=== PATIENT | male | born 1985 | race Caucasian/White ===

== ENCOUNTER 2016-10-08 17:36 | Emergency (ER) | payer OTHER ==
--- NOTE | 2016-10-08 19:36 | ED CLINICAL REPORT ---
Clinical Report - Physicians/Mid Levels [facility] [address] [place] [address] 10/08/2016 17:39 Patient: CINDY SCHMITT Time Seen: 17:54; initial patient contact, initial documentation, patient care assumed. Arrived- By private vehicle. Historian- patient and significant other. HISTORY OF PRESENT ILLNESS The patient has recovered. Chief Complaint: SINGLE SYNCOPAL EPISODE. This occurred just prior to arrival. Event was witnessed. The patient had preceding symptoms of light-headedness. The patient lost consciousness and collapsed. No seizure activity, incontinence or apnea noted. Did not lose pulse. At time of event, he had just stood up. Had a single episode. The episode was brief and lasted seconds. Location of injuries- right hip. (sleepy). Similar symptoms previously: Twice, as bad. Recent medical care: The patient was seen recently in the office. ( was at dental office, had wisdom teeth removed, had nitrous gas, was in waiting room, spouse checking him out, he went to stand up and got lightheaded and passed out, still feels groggy from procedure, ems called to scene, checked him over, and everything looked ok). REVIEW OF SYSTEMS No headache, dizziness, weakness, chest pain or abdominal pain. No vomiting, numbness, fever or difficulty breathing. All systems otherwise negative, except as recorded above. PAST HISTORY Negative. SOCIAL HISTORY Never smoker. No alcohol use or drug use. No recent travel. Is a local resident. FAMILY HISTORY Negative. ADDITIONAL NOTES The nursing notes have been reviewed with agreement regarding the chief complaint, HPI, ROS, PMH and patient medications and allergies. PHYSICAL EXAM Vital Signs: 10/08/2016 17:53 BP: 105/68. HR: 53. RR: 12. O2 saturation: 98%. Temp: 97.6 F. Pain level now: 5/10. Have been reviewed as abnormal and appear to be correct. Blood pressure normal. Bradycardic. Respiratory rate normal. Temperature normal. Oxygen saturation normal. Appearance: Alert. No acute distress. Eyes: Pupils equal, round and reactive to light. No nystagmus. Extraocular movements normal. ENT: Normal ENT inspection. TM's normal. Moist mucous membranes. Pharynx normal. (packing in place over R upper molar area, no active bleeding, no swelling). Neck: Normal inspection. Neck supple. CVS: Heart rate / rhythm abnormal. Bradycardia (ventricular rate = 56). Heart sounds normal. Pulses normal. Respiratory: No respiratory distress. Breath sounds normal. Abdomen: Soft and nontender. No organomegaly. Back: Normal inspection. Skin: Skin warm and dry. Normal skin color. No rash. Normal skin turgor. Extremities: Extremities exhibit normal ROM. No lower extremity edema. Neuro: Alert. Oriented X 3. Mood/affect normal. Speech normal. Cranial nerves normal (as tested). No cerebellar findings. No motor deficit. No sensory deficit. LABS, X-RAYS, AND EKG EKG: EKG time: (1830). No acute process. No acute ischemia. Normal EKG. Rate: 43. Narrow-complex bradycardia (ventricular rate 43). Sinus bradycardia. Normal EKG. The study has been interpreted contemporaneously by me (and Dr Cordon). The EKG appears to be a good tracing. Interpretation time: 1840. Laboratory Tests: CBC w Diff: (WILMA: 10/08/2016 18:47) ( MsgRcvd 10/08/2016 19:00) Final results Test Result Flag Units (Reference) WHITE BLOOD COUNT 10.0 K/uL (4.5-11.5) RED BLOOD COUNT 4.50 M/uL (4.50-5.90) HEMOGLOBIN 13.1 L gm/dL (13.5-17.5) HEMATOCRIT 39.4 L % (41.0-53.0) MEAN CELL VOLUME 87 fL (80-100) MEAN CORPUSCULAR HGB 29 pg (26-34) MEAN CORPUSCULAR HGB CONC 33 g/dL (31-37) RED CELL DISTRIBUTION WIDTH 13.4 % (11.6-14.8) PLATELET COUNT 182 K/uL (150-400) NEUTROPHIL % 78.7 H % (50-75) LYMPH % 14.4 L % (25-40) MONO % 6.2 % (3-14) EOSINOPHIL % 0.4 % (0-4) BASOPHIL % 0.3 % (0-2) CMP: (WILMA: 10/08/2016 18:47) ( MsgRcvd 10/08/2016 19:12) Final results Test Result Flag Units (Reference) GLUCOSE 84 mg/dL (70-110) BUN 19 H mg/dL (7-18) CREATININE 1.0 mg/dL (0.6-1.3) Estimated GFR >60 mL/min Estimated GFR- >60 mL/min Note: Persistent reduction over 3 months in eGFR<60 mL/min/1.73 m2 defines CKD. Patients with eGFR values>=60 mL/min/1.73 m2 may also have CKD if evidence ofpersistent proteinuria. Additional information may be foundat www.kidney.org. SODIUM 143 mmol/L (136-145) POTASSIUM 3.9 mmol/L (3.5-5.1) CHLORIDE 105 mmol/L (98-107) CARBON DIOXIDE 32 mmol/L (21-32) CALCIUM 8.8 mg/dL (8.5-10.1) TOTAL PROTEIN 7.4 g/dL (6.4-8.2) ALBUMIN 4.1 g/dL (3.3-5.0) BILIRUBIN, TOTAL 0.5 mg/dL (0.0-1.0) ALKALINE PHOSPHATASE 41 L U/L (46-116) AST (SGOT) 34 U/L (15-37) ALT (SGPT) 49 U/L (12-78) . PROGRESS AND PROCEDURES Course of Care: 18:32 10/08/16. BP: 105/64 (regular adult cuff) taken on the left arm, via an automated monitor, while lying. HR: 49 (regular). --18:33 Monique Cyr 18:34 10/08/16. BP: 104/70 (regular adult cuff) taken on the left arm, via an automated monitor, while sitting. HR: 46. --18:34 Monique Cyr 18:38 10/08/16. BP: 107/68 (regular adult cuff) taken on the left arm, via an automated monitor, while standing. HR: 55. --18:39 Monique Cyr. Patient and spouse counseled in person regarding the patient's stable condition, test results and diagnosis. 19:26. Differential Diagnosis: I considered situational stimulus, cough, sneezing, swallowing, cardiac sinus hypersensitivity, sudden postural change, hypovolemia, autonomic neuropathy, adrenal insufficiency, arrhythmia, heart block, myocardial infarction, idiopathic hypertrophic subaortic stenosis, aortic stenosis, left ventricular dysfunction, hypoxia, hypoglycemia and basivertebral TIA as a possible cause of syncope in this patient. This is a partial list of diagnoses considered. Above considerations are based on history, physical exam, reassessment, laboratory data, EKG and other information. Differential diagnosis was discussed with patient and patient's spouse. Disposition: Discharged home in good and improved condition (19:36). Condition: good and stable. CLINICAL IMPRESSION Syncope of unknown cause .12 lead EKG performed. INSTRUCTIONS Warnings: GENERAL WARNINGS: Return or contact your physician immediately if your condition worsens or changes unexpectedly, if not improving as expected, or if other problems arise. SPECIFICALLY, return if you develop chest pain, neck pain, jaw pain, shoulder pain, arm pain, back pain, fluttering sensation in your chest, lightheadedness, fainting, numbness, weakness or extreme fatigue. Follow-up: Follow up with your doctor in about three days as needed. Call for an appointment. Summary of care provided to patient and family. Understanding of the discharge instructions verbalized by patient and family. (Electronically signed by Suzanne Tinajero A.R.N.P. 10/08/2016 22:41)
--- NOTE | 2016-10-08 19:36 | ED ORDER SUMMARY ---
..... Patient: CINDY SCHMITT OrderSheet [facility] VisitID: [id number] [address] [place] [address] 31y, M Registration Date/Time: 10/08/2016 ORDER SHEET Weight: 65.7 kg (stated) Allergies: Penicillin GENERAL ORDERS: CBC w Diff Urgent (18:20 10/08/2016 HBivens A.R.N.P.) (Ack 18:21 IJurca ER Tech1) (18:50 MCook R.N.) CMP Urgent (18:20 10/08/2016 HBivens A.R.N.P.) (Ack 18:21 IJurca ER Tech1) (18:50 MCook R.N.) Vitals - Orthostatic (18:20 10/08/2016 HBivens A.R.N.P.) (Ack 18:21 IJurca ER Tech1) (18:39 RKaruga) EKG - ER Stat (18:20 10/08/2016 HBivens A.R.N.P.) (Ack 18:21 IJurca ER Tech1) (18:39 RKaruga) MEDICATION ORDERS: IV FLUIDS: IV NS : initial bolus 1000 mL (1000 mL/hr), then none - (NOW) (18:19 10/08/2016 HBivens A.R.N.P.) (18:50 MCook R.N.) IV Saline Lock (18:20 10/08/2016 HBivens A.R.N.P.) (18:49 MCook R.N.) ORDER SHEET NOTES: [Electronically signed by Shyam Marcum R.N. (19:52 10/08/2016)] [Electronically signed by Suzanne Tinajero.R.N.P. (22:41 10/08/2016)] [Electronically locked/signed by Shyam Marcum R.N. (19:52 10/08/2016)]
--- NOTE | 2016-10-08 19:36 | ED NURSING NOTES ---
Clinical Report - Nurses [facility] [place] [address] [address] 10/08/2016 17:39 Patient: CINDY SCHMITT TRIAGE Triage time 17:47 Oct 08 2016. Chief Complaint: (Pt had a syncopal event at the dental clinic post procedure). Alert. No acute distress. SEPSIS SCREEN: Sepsis Screen. Negative (no infection suspected/documented). --17:50 Shyam Marcum R.N. 17:53 10/08/16. BP: 105/68. HR: 53. RR: 12. O2 saturation: 98% on room air. Temp: 97.6 F. Pain level now: 09/30. --17:55 Shyam Marcum R.N. Weight: 65.7 kg stated. Height/Length: 71 inches Per Patient. BMI: 20.2. --17:46 Shyam Marcum R.N. Medications Suboxone Sublingual. --17:49 Shyam Marcum R.N. Allergies Penicillin. --17:49 Shyam Marcum R.N. The following entry was struck by Shyam Marcum R.N., 17:49 (10/08/16) Reason - wrong value. <<STRICKEN ENTRY-- Penicill. --17:48 Shyam Marcum R.N. --END STRIKE>>. History Arrived by private vehicle. Historian: patient. Accompanied by family. This started today. ( EMS saw Pt at the scene, recommended he come to ED for further eval.). Treatment ENDS DOWN CHECKER: None. PAST MEDICAL HX: Immunizations: up-to-date. SOCIAL HX: Never smoker. History of drug use: marijuana. (last use was yesterday). No alcohol use. No infectious disease exposure. FALL RISK ASSESSMENT: Fall risk assessment completed. No fall risk identified. NUTRITIONAL RISK ASSESSMENT: The nutritional risk assessment revealed no deficiencies. FUNCTIONAL ASSESSMENT: Functional assessment: no impairments noted. LEARNING NEEDS ASSESSMENT: The learning needs assessment revealed no barriers. SKIN INTEGRITY ASSESSMENT: Skin integrity risk assessment completed. No skin integrity risk identified. --17:50 Shyam Marcum R.N. ADDITIONAL SURGERIES: no known surgeries. Interventions ID band on patient. --17:50 Shyam Marcum R.N. PHYSICAL ASSESSMENT Ambulatory to room. GENERAL / NEURO / PSYCH: Appears in distress. Alert. Altered mental status: lethargic. HEENT: Pupils equal, round and reactive to light. RESPIRATORY: Respirations not labored. CVS: Cardiac rhythm: sinus bradycardia. SKIN: Skin is warm and dry. Skin is pale. --17:56 Shyam Marcum R.N. NURSING PROGRESS NOTES The plan of care for this patient has been created. Monitoring of patient in place. Patient gowned. Head of bed elevated. Reassurance given. Two patient identifiers checked. Call light placed in reach. Side rails up x 2. Bed placed in lowest position. Patient ready for evaluation. --17:56 Shyam Marcum R.N. 18:32 10/08/16. BP: 105/64 (regular adult cuff) taken on the left arm, via an automated monitor, while lying. HR: 49 (regular). --18:33 Monique Cyr 18:34 10/08/16. BP: 104/70 (regular adult cuff) taken on the left arm, via an automated monitor, while sitting. HR: 46. --18:34 Monique Cyr 18:38 10/08/16. BP: 107/68 (regular adult cuff) taken on the left arm, via an automated monitor, while standing. HR: 55. --18:39 Monique Cyr EKG time: (18:31). EKG was performed by a tech and shown to the ED physician. --18:41 Monique Cyr 18:49 10/08/2016 Site #1 started via IV in the right antecubital space with an 20g angiocath, with aseptic technique and good blood return; one attempt. Blood drawn: rainbow set. Labeled in the presence of the patient and sent to the lab. Saline lock flushed with 10 mL saline. --18:49 Shyam Marcum R.N. 18:50 10/08/2016 Started bag #1 1000 mL IV Fluids IV NS (Saline); bolus of 1000 mL wide open via site #1. Allergies verified and confirmed 5 rights. IV patency established. IV site checked: no pain, redness, or swelling. IV flushed thoroughly pre- and post-medication administration. Completed per protocol. --18:50 Shyam Marcum R.N. ( Pt resting in room with eyes closed, in no apparent distress, VSS, IVIP, IVF infusing as ordered, wctm.). --18:50 Shyam Marcum R.N. 19:35 10/08/2016 Site #1 removed upon discharge. Bandage applied. --19:35 Shyam Marcum R.N. 19:35 10/08/2016 IV Fluids IV NS Discontinued: bag #1 infused. Total amount infused: 1000 mL. IV patency established. IV site checked: no pain, redness, or swelling. IV flushed thoroughly. --19:35 Shyam Marcum R.N. DISPOSITION / DISCHARGE 19:30 10/08/16. BP: 119/78. HR: 50. RR: 17. O2 saturation: 99% on room air. Pain level now: 0/10. --19:32 Shyam Marcum R.N. Departure time: 19:51 Oct 08 2016. Condition at departure: improved and stable. The goals identified in the patient's plan of care were met. No learning barriers present. Discharge instructions provided and reviewed with the patient and spouse. Reviewed referral to a primary care physician for followup. Patient and spouse verbalized understanding. Written instructions provided in Kazakh. The patient was discharged home and accompanied by spouse. He left the Emergency Department ambulatory and via private vehicle. Spouse driving. ( Pt status is improved, ambulatory, vitals improved, Pt is afebrile, verbalized understanding of DC paperwork, discussed reasons to return to ED (CP, SOB, fever).). --19:51 Shyam Marcum R.N. 19:51 10/08/16. Temp: deferred. --19:51 Shyam Marcum R.N. Locked/Released at 10/08/2016 19:52 by Shyam Marcum R.N.
--- NOTE | 2016-10-08 19:36 | ED ORDER SUMMARY ---
..... Patient: CINDY SCHMITT OrderSheet [facility] VisitID: [id number] [address] [place] [address] 31y, M Registration Date/Time: 10/08/2016 ORDER SHEET Weight: 65.7 kg (stated) Allergies: Penicillin GENERAL ORDERS: CBC w Diff Urgent (18:20 10/08/2016 HBivens A.R.N.P.) (Ack 18:21 IJurca ER Tech1) (18:50 MCook R.N.) CMP Urgent (18:20 10/08/2016 HBivens A.R.N.P.) (Ack 18:21 IJurca ER Tech1) (18:50 MCook R.N.) Vitals - Orthostatic (18:20 10/08/2016 HBivens A.R.N.P.) (Ack 18:21 IJurca ER Tech1) (18:39 RKaruga) EKG - ER Stat (18:20 10/08/2016 HBivens A.R.N.P.) (Ack 18:21 IJurca ER Tech1) (18:39 RKaruga) MEDICATION ORDERS: IV FLUIDS: IV NS : initial bolus 1000 mL (1000 mL/hr), then none - (NOW) (18:19 10/08/2016 HBivens A.R.N.P.) (18:50 MCook R.N.) IV Saline Lock (18:20 10/08/2016 HBivens A.R.N.P.) (18:49 MCook R.N.) ORDER SHEET NOTES: [Electronically signed by Shyam Marcum R.N. (19:52 10/08/2016)] [Electronically signed by Suzanne Tinajero.R.N.P. (22:41 10/08/2016)] [Electronically locked/signed by Shyam Marcum R.N. (19:52 10/08/2016)]
--- NOTE | 2016-10-08 22:41 | ED DISCHARGE INSTRUCTIONS ---
Patient: CINDY SCHMITT General Instructions [facility] VisitID: [id number] [place] [address] 31y, M Registration Date/Time: 10/08/2016 Syncope of unknown cause .12 lead EKG performed. INSTRUCTIONS Warnings: GENERAL WARNINGS: Return or contact your physician immediately if your condition worsens or changes unexpectedly, if not improving as expected, or if other problems arise. SPECIFICALLY, return if you develop chest pain, neck pain, jaw pain, shoulder pain, arm pain, back pain, fluttering sensation in your chest, lightheadedness, fainting, numbness, weakness or extreme fatigue. Follow-up: Follow up with your doctor in about three days as needed. Call for an appointment. Summary of care provided to patient and family. Understanding of the discharge instructions verbalized by patient and family. ADDITIONAL INFORMATION Fainting:Vagal Reaction Fainting (syncope) is a temporary loss of consciousness ("passing out"). It occurs when blood flow to the brain is reduced. Your doctor believes that your episode was due to a vagal reaction. This condition is not a sign of serious disease. A vagal reaction is a reflex response that causes the pulse to slow down or the blood vessels to dilate. This causes the blood pressure to fall, reducing the blood flow to the brain if you are standing or sitting. That results in dizziness, near-fainting or fainting. Lying down usually stops the reaction within 60 seconds. This reflex response can occur during sudden fear, severe pain, emotional stress, overexertion, overheating, hunger, nausea or vomiting, prolonged standing or standing up after sitting or lying for a long time. Home Care: 1) Rest today and resume your normal activities as soon as you are feeling back to normal. 2) If you become light-headed or dizzy, lie down immediately or sit with your head lowered between your knees. Follow Up with your doctor as instructed. Get Prompt Medical Attention if any of the following occur: -- Another fainting spell occurs, which is not explained by the common causes listed above -- Chest, arm, neck, jaw, back or abdominal pain -- Shortness of breath -- Severe headache or seizure -- Blood in vomit, stools (black or red color) -- Unexpected vaginal bleeding -- Palpitations (very rapid or very slow or irregular heart beat) -- Signs of stroke: Weakness of an arm or leg or one side of the face Difficulty with speech or vision Extreme drowsiness, confusion, dizziness or fainting Fainting:Uncertain Cause Fainting (syncope) is a temporary loss of consciousness ("passing out"). It occurs when blood flow to the brain is reduced. Near-fainting ("near-syncope") is very similar to fainting, but you do not fully "pass out". The common minor causes of fainting include: sudden fear, pain, nausea, emotional stress and overexertion. Suddenly standing up after sitting or lying for a long time can also cause fainting. The more serious causes for fainting are due to either a very slow or very fast or very slow heart beat ("arrhythmia"), other types of heart disease, dehydration, blood loss, seizure, stroke or ruptured blood vessel in the brain. Taking too much high blood pressure medicine can also cause low blood pressure and fainting. The exact cause of your episode is not certain. However, the tests today did not show any of the serious causes of fainting. Sometimes further testing is needed to find out if a serious problem exists. Therefore, it is important that you follow-up with your doctor as advised. Home Care: 1) Rest today. You may resume your normal activities when you are feeling back to normal. It is best to remain with someone who can check on you for the next 24 hours to watch for another episode of fainting. 2) If you become light-headed or dizzy, lie down immediately or sit with your head between your knees. 3) Because we do not know the exact cause of your near fainting spell, it is possible for another spell to occur without warning. Therefore, do not drive a car or operate dangerous equipment, do not take a bath alone (use a shower instead) and do not swim alone until your doctor says that you are no longer in danger of having another fainting spell. Follow Up with your doctor as advised. Get Prompt Medical Attention if any of the following occur: -- Another fainting spell occurs, which is not explained by the common causes listed above -- Chest, arm, neck, jaw, back or abdominal pain -- Shortness of breath -- Severe headache or seizure -- Blood in vomit, stools (black or red color) -- Unexpected vaginal bleeding -- Palpitations (very rapid or very slow or irregular heart beat) -- Signs of stroke: Weakness of an arm or leg or one side of the face Difficulty with speech or vision Extreme drowsiness, confusion, dizziness or fainting You have been given the following additional information: Syncope, Vasovagal Syncope, Unk Cause (Electronically signed by Suzanne Tinajero A.R.N.PRhys 10/08/2016 22:41)
--- NOTE | 2016-10-08 22:42 | ED MAR SUMMARY ---
..... Medication Administration Record [facility] [address] [place] [address] Patient: CINDY SCHMITT Visit ID: [id number] 31y, M Weight: 65.7 kg Height/Length: 71 in BMI: 20.2 ALLERGIES: Penicillin Start 18:50 10/08/2016 Shyam Marcum R.N., Stop 19:35 10/08/2016 Shyam Marcum R.N. Medication Administered: IV NS (SALINE), Dose: IV Fluids, Bolus: 1000 mL wide open, Dispensed: 1000 mL bag, Site: #1 right AC. Medication Ordered: IV NS : initial bolus 1000 mL (1000 mL/hr), then none - (NOW).
--- NOTE | 2016-10-08 22:42 | ED MED RECONCILIATION SUMMARY ---
Patient: CINDY SCHMITT Medication Reconciliation Report [facility] VisitID: [id number] [address] [place] [place] [address] 31y, M Registration Date/Time: 10/08/2016 Weight: 65.7 kg Height/Length: 71 in. BMI: 20.2 ALLERGIES: Penicillin The patient's Home Medications are listed below: THE FOLLOWING MEDICATIONS NEED TO BE RECONCILED: Suboxone Sublingual The source(s) of the original Home Medication information: Not obtained. The following Medications were given to the patient in the Emergency Department: IV NS IV Fluids bolus 1000 mL wide open, administered: 10/08/2016 6:50:00 PM The following Medications were prescribed to the patient: None.
--- NOTE | 2016-10-08 22:42 | ED MAR SUMMARY ---
..... Medication Administration Record [facility] [address] [place] [address] Patient: CINDY SCHMITT Visit ID: [id number] 31y, M Weight: 65.7 kg Height/Length: 71 in BMI: 20.2 ALLERGIES: Penicillin Start 18:50 10/08/2016 Shyam Marcum R.N., Stop 19:35 10/08/2016 Shyam Marcum R.N. Medication Administered: IV NS (SALINE), Dose: IV Fluids, Bolus: 1000 mL wide open, Dispensed: 1000 mL bag, Site: #1 right AC. Medication Ordered: IV NS : initial bolus 1000 mL (1000 mL/hr), then none - (NOW).
--- NOTE | 2016-10-08 22:42 | ED MED RECONCILIATION SUMMARY ---
Patient: CINDY SCHMITT Medication Reconciliation Report [facility] VisitID: [id number] [address] [place] [place] [address] 31y, M Registration Date/Time: 10/08/2016 Weight: 65.7 kg Height/Length: 71 in. BMI: 20.2 ALLERGIES: Penicillin The patient's Home Medications are listed below: THE FOLLOWING MEDICATIONS NEED TO BE RECONCILED: Suboxone Sublingual The source(s) of the original Home Medication information: Not obtained. The following Medications were given to the patient in the Emergency Department: IV NS IV Fluids bolus 1000 mL wide open, administered: 10/08/2016 6:50:00 PM The following Medications were prescribed to the patient: None.
== END 2016-10-08 19:50 | disposition home or self-care (01) ==
LOC: ED SRH 17:36
DX: R55 Syncope and collapse (principal); Z88.0 Allergy status to penicillin
CPT/HCPCS: 90100; 95059